=== PATIENT | female | born 1945 | race Two or more races ===

== ENCOUNTER 2018-03-27 18:06 | Emergency (ER) | payer OTHER ==
[~2018-03-27] VITALS: Ht 157.5 cm; Wt 72.6 kg
[~2018-03-27 18:06] MED LIST: ALBUTEROL2.5 MG/3 M IH; GILTUSS COUGH-118 ML PO; IBUPROFEN800 MG PO; SEPTRA DS TABLE1 TAB PO
[2018-03-27] MEDS ORDERED: MUCINEX600 MG (18:16)
[2018-03-27] MEDS ORDERED: SYMBICORT 16010.2 GM (18:16)
[2018-03-28] MEDS ORDERED: SYMBICORT 16010.2 GM IH (01:55)
[2018-03-28] MEDS ORDERED: ZYNCOF 20-400120 ML PO (01:55)
[2018-03-28] MEDS ORDERED: ALBUTEROL2.5 MG/3 M IH (01:55)
[2018-03-28] MEDS ORDERED: ALLEGRA ALLERG180 MG PO (01:55)
== END 2018-03-28 01:51 | disposition home or self-care (01) ==
LOC: ER 18:06
DX: J45.998 Other asthma (principal)

== ENCOUNTER 2018-07-04 15:41 | Emergency (ER) | payer OTHER ==
[~2018-07-04] VITALS: Ht 157.5 cm; Wt 72.6 kg
[~2018-07-04 15:41] MED LIST changes: +ALLEGRA ALLERG180 MG PO; +MUCINEX600 MG; +SYMBICORT 16010.2 GM; +SYMBICORT 16010.2 GM IH; +ZYNCOF 20-400120 ML PO
== END 2018-07-04 17:37 | disposition home or self-care (01) ==
LOC: ER 15:41
DX: S20.211A Contusion of right front wall of thorax, initial encounter (principal); B34.9 Viral infection, unspecified; W06.XXXA Fall from bed, initial encounter; Y93.84 Activity, sleeping; Y92.092 Bedroom in other non-institutional residence as the place of occurrence of the external cause; Y99.8 Other external cause status

== ENCOUNTER 2018-07-09 08:26 | Emergency (ER) | payer OTHER ==
[~2018-07-09] VITALS: Ht 157.5 cm; Wt 72.6 kg
== END 2018-07-09 11:58 | disposition home or self-care (01) ==
LOC: ER 08:26
DX: S20.212A Contusion of left front wall of thorax, initial encounter (principal); S20.211A Contusion of right front wall of thorax, initial encounter; W18.39XA Other fall on same level, initial encounter; Y93.89 Activity, other specified; Y92.098 Other place in other non-institutional residence as the place of occurrence of the external cause; Y99.8 Other external cause status

== ENCOUNTER 2018-07-14 12:29 | Outpatient (CLI) | payer OTHER | END 2018-07-14 12:38 | disposition home or self-care (01) | LOC: TOM 12:29 | DX: J44.9 Chronic obstructive pulmonary disease, unspecified (principal); R07.89 Other chest pain ==

== ENCOUNTER 2019-01-22 13:38 | Outpatient (CLI) | payer OTHER | END 2019-01-22 14:28 | disposition home or self-care (01) | LOC: RAD 13:38 | DX: R05 Cough (principal) ==

== ENCOUNTER 2019-01-26 08:45 | Outpatient (CLI) | payer OTHER | END 2019-01-26 08:47 | disposition home or self-care (01) | LOC: SONOGRAMA 08:45 | DX: K76.0 Fatty (change of) liver, not elsewhere classified (principal); R10.84 Generalized abdominal pain; D25.9 Leiomyoma of uterus, unspecified ==

== ENCOUNTER 2019-02-03 14:17 | Outpatient (CLI) | payer OTHER | END 2019-02-03 14:23 | disposition home or self-care (01) | LOC: NUCLEAR 14:17 | DX: M81.0 Age-related osteoporosis without current pathological fracture (principal) ==

== ENCOUNTER 2019-04-06 11:44 | Emergency (ER) | payer OTHER ==
[~2019-04-06] VITALS: Ht 157.5 cm; Wt 73.0 kg
[2019-04-06] MEDS ORDERED: KETO10TA2 PO (16:09)
[2019-04-06] MEDS ORDERED: MAPAP500 MG (16:42)
== END 2019-04-06 16:31 | disposition home or self-care (01) ==
LOC: ER 11:44
DX: S80.01XA Contusion of right knee, initial encounter (principal); S99.811A Other specified injuries of right ankle, initial encounter; W01.198A Fall on same level from slipping, tripping and stumbling with subsequent striking against other object, initial encounter; Y93.89 Activity, other specified; Y92.018 Other place in single-family (private) house as the place of occurrence of the external cause; Y99.8 Other external cause status

== ENCOUNTER 2019-05-14 13:52 | Outpatient (CLI) | payer OTHER ==
[~2019-05-14 13:52] MED LIST changes: +KETO10TA2 PO; +MAPAP500 MG
== END 2019-05-14 16:02 | disposition home or self-care (01) ==
LOC: EKG 13:52
DX: I10 Essential (primary) hypertension (principal); J44.9 Chronic obstructive pulmonary disease, unspecified

== ENCOUNTER 2019-05-19 09:47 | Outpatient (CLI) | payer OTHER | END 2019-05-19 11:36 | disposition home or self-care (01) | LOC: NUCLEAR 09:47 | DX: I10 Essential (primary) hypertension (principal); J44.9 Chronic obstructive pulmonary disease, unspecified ==

== ENCOUNTER 2019-08-25 07:07 | Emergency (ER) | payer OTHER ==
[~2019-08-25] VITALS: Ht 157.5 cm; Wt 72.1 kg
== END 2019-08-25 11:13 | disposition home or self-care (01) ==
LOC: ER 07:07
DX: J44.1 Chronic obstructive pulmonary disease with (acute) exacerbation (principal)

== ENCOUNTER 2019-08-30 09:02 | Emergency (ER) | payer OTHER ==
[~2019-08-30] VITALS: Ht 157.5 cm; Wt 72.6 kg
[2019-08-30] MEDS ORDERED: TESSALON PERLE100 M1 (09:17)
== END 2019-08-30 12:34 | disposition home or self-care (01) ==
LOC: ER 09:02
DX: J45.998 Other asthma (principal)

== ENCOUNTER 2020-04-27 09:09 | Emergency (ER) | payer OTHER ==
[~2020-04-27] VITALS: Ht 154.9 cm; Wt 72.6 kg
[~2020-04-27 09:09] MED LIST changes: +TESSALON PERLE100 M1
== END 2020-04-27 12:11 | disposition home or self-care (01) ==
LOC: ER 09:09
DX: R07.89 Other chest pain (principal); Z03.818 Encounter for observation for suspected exposure to other biological agents ruled out

== ENCOUNTER 2021-02-28 11:07 | Emergency (ER) | payer OTHER ==
[~2021-02-28] VITALS: Ht 154.9 cm; Wt 72.6 kg
== END 2021-02-28 19:11 | disposition home or self-care (01) ==
LOC: ER 11:07
DX: B34.9 Viral infection, unspecified (principal); Z11.52 Encounter for screening for COVID-19; R50.9 Fever, unspecified; M54.5 Low back pain; R53.81 Other malaise

== ENCOUNTER 2021-05-09 14:34 | Emergency (ER) | payer OTHER ==
[~2021-05-09] VITALS: Ht 154.9 cm; Wt 77.6 kg
[2021-05-09] MEDS ORDERED: LASIX20 MG PO (18:09)
== END 2021-05-09 19:03 | disposition home or self-care (01) ==
LOC: ER 14:34
DX: R60.0 Localized edema (principal); M25.572 Pain in left ankle and joints of left foot; M25.571 Pain in right ankle and joints of right foot

== ENCOUNTER 2021-08-17 10:15 | Emergency (ER) | payer OTHER ==
[~2021-08-17] VITALS: Ht 165.1 cm; Wt 77.1 kg
[~2021-08-17 10:15] MED LIST changes: +LASIX20 MG PO
[2021-08-17] MEDS ORDERED: ABREVA2 GM TOP (10:46)
[2021-08-17] MEDS ORDERED: VALACYCLOVIR1000 MG PO (10:46)
== END 2021-08-17 10:54 ==
LOC: ER 10:15
DX: B00.1 Herpesviral vesicular dermatitis (principal)

== ENCOUNTER 2021-08-21 09:35 | Outpatient (CLI) | payer OTHER ==
[~2021-08-21 09:35] MED LIST changes: +ABREVA2 GM TOP; +VALACYCLOVIR1000 MG PO
== END 2021-08-21 09:36 | disposition home or self-care (01) ==
LOC: NUCLEAR 09:35
PROVIDERS: ATTEND Surgery
DX: I87.2 Venous insufficiency (chronic) (peripheral) (principal); I73.9 Peripheral vascular disease, unspecified

== ENCOUNTER 2021-09-25 10:58 | Emergency (ER) | payer OTHER ==
[~2021-09-25] VITALS: Ht 154.9 cm; Wt 77.1 kg
== END 2021-09-25 13:42 | disposition home or self-care (01) ==
LOC: ER 10:58
DX: J45.901 Unspecified asthma with (acute) exacerbation (principal)

== ENCOUNTER 2021-11-08 10:45 | Outpatient (CLI) | payer OTHER | END 2021-11-08 10:46 | disposition home or self-care (01) | LOC: NUCLEAR 10:45 | PROVIDERS: ATTEND Internal Medicine Cardiovascular Disease | DX: I11.9 Hypertensive heart disease without heart failure (principal) ==

== ENCOUNTER 2022-04-27 22:29 | Emergency (ER) | payer OTHER ==
[~2022-04-27] VITALS: Ht 154.9 cm; Wt 72.6 kg
[2022-04-28] MEDS ORDERED: XOPENEX0.63 MG/3 IH (01:32)
[2022-04-28] MEDS ORDERED: MOLNUPIRAVIR (200 MG PO (01:32)
[2022-04-28] MEDS ORDERED: ACETAMINOPHEN650 M2 PO (01:32)
[2022-04-28] MEDS ORDERED: MUCINEX DM ER1 EACH PO (01:32)
== END 2022-04-28 01:55 | disposition home or self-care (01) ==
LOC: ER 22:29
DX: U07.1 COVID-19 (principal)

== ENCOUNTER 2022-05-06 16:10 | Emergency (ER) | payer OTHER ==
[~2022-05-06] VITALS: Ht 157.5 cm; Wt 90.7 kg
[~2022-05-06 16:10] MED LIST changes: +ACETAMINOPHEN650 M2 PO; +MOLNUPIRAVIR (200 MG PO; +MUCINEX DM ER1 EACH PO; +XOPENEX0.63 MG/3 IH
== END 2022-05-06 19:55 | disposition home or self-care (01) ==
LOC: ER 16:10
DX: U07.1 COVID-19 (principal)

== ENCOUNTER 2022-06-11 18:09 | Inpatient (IN) | payer OTHER ==
[~2022-06-11] VITALS: Ht 154.9 cm; Wt 74.8 kg
[2022-06-11] MEDS ORDERED: TESSALON (18:29)
[2022-06-11] MEDS ORDERED: PROVENTIL HFA6.7 GM (18:29)
[2022-06-14] MEDS ORDERED: MEDROLPACK PO (16:44)
[2022-06-14] MEDS ORDERED: IPRAT-ALBUT 0.5-3 ML IH (16:44)
[2022-06-14] MEDS ORDERED: TUSSIN DM LIQU118 ML PO (16:44)
[2022-06-14] MEDS ORDERED: INTESTINEX680 M1 PO (16:44)
[2022-06-14] MEDS ORDERED: LEVOFLOXACIN500 MG PO (16:44)
== END 2022-06-14 20:21 | disposition home or self-care (01) | DRG 191 ==
LOC: ER 18:09 → MEDI 22:11 → SEC-K 22:11 → MEDI 06-12 02:31
PROVIDERS: ADMIT Internal Medicine; ATTEND Internal Medicine
PROC: BB24ZZZ Computerized Tomography (CT Scan) of Bilateral Lungs (ICD-10-PCS; 2022-06-11)
PROC: 3E0F7GC Introduction of Other Therapeutic Substance into Respiratory Tract, Via Natural or Artificial Opening (ICD-10-PCS; principal; 2022-06-12)
DX: J44.1 Chronic obstructive pulmonary disease with (acute) exacerbation (principal); N17.9 Acute kidney failure, unspecified; J84.112 Idiopathic pulmonary fibrosis; Z77.22 Contact with and (suspected) exposure to environmental tobacco smoke (acute) (chronic); J40 Bronchitis, not specified as acute or chronic; U09.9 Post COVID-19 condition, unspecified

== ENCOUNTER 2022-07-04 12:38 | Outpatient (CLI) | payer OTHER ==
[~2022-07-04 12:38] MED LIST changes: +INTESTINEX680 M1 PO; +IPRAT-ALBUT 0.5-3 ML IH; +LEVOFLOXACIN500 MG PO; +MEDROLPACK PO; +PROVENTIL HFA6.7 GM; +TESSALON; +TUSSIN DM LIQU118 ML PO
== END 2022-07-04 12:43 | disposition home or self-care (01) ==
LOC: MRI 12:38
PROVIDERS: ATTEND Psychiatry & Neurology Clinical Neurophysiology
DX: I63.30 Cerebral infarction due to thrombosis of unspecified cerebral artery (principal)
CPT/HCPCS: 70551

== ENCOUNTER 2022-09-25 13:40 | Outpatient (CLI) | payer OTHER | END 2022-09-25 13:54 | disposition home or self-care (01) | LOC: SONOGRAMA 13:40 | PROVIDERS: ATTEND Internal Medicine Cardiovascular Disease | DX: I10 Essential (primary) hypertension (principal); R10.9 Unspecified abdominal pain ==

== ENCOUNTER → 2023-08-13 | Emergency (ER) | payer OTHER ==
[~2023-08-13] VITALS: Ht 157.5 cm; Wt 72.6 kg
== END | disposition left against medical advice (07) ==
LOC: ER 20:39
DX: Z53.21 Procedure and treatment not carried out due to patient leaving prior to being seen by health care provider (principal)

== ENCOUNTER → 2024-04-16 08:17 | Outpatient (CLI) | payer OTHER | END | disposition home or self-care (01) | LOC: TOM 08:17 | PROVIDERS: ATTEND Specialist | DX: K11.8 Other diseases of salivary glands (principal) | CPT/HCPCS: 70491; Q9965 ==

== ENCOUNTER 2024-10-12 16:43 | Emergency (ER) | payer OTHER ==
[~2024-10-12] VITALS: Ht 154.9 cm; Wt 72.6 kg
[2024-10-12 18:47] LABS: HEMATOCRIT 42.9 % (36.0-45.00); MEAN CELL VOLUME 87.7 fL (80.00-100.00); MEAN CORPUSCULAR HEMOGLOBIN 28.6 pg (27.00-32.0); MEAN CORPUSCULAR HGB CONC 32.6 g/dl (32.0-36.0); PLATELET COUNT 222 K/uL (150-450); RED BLOOD COUNT 4.89 M/uL (4.00-6.00); RED CELL DISTRIBUTION WIDTH 14.5 % (11.5-14.5)
[2024-10-12 19:26] LABS: ALBUMIN 3.6 gm/dL (3.4-5.0); BILIRUBIN TOTAL 0.35 mg/dL (0.3-1.2); CALCIUM 9.2 mg/dL (8.5-10.1); CREATININE SERUM 0.87 mg/dL (0.55-1.02); GFR 62.65; GLOBULINA 2.8 G/DL (2.4-3.5); POTASSIUM 3.93 mEq/L (3.5-5.1); TOTAL PROTEIN 6.4 gm/dL (6.4-8.2)
== END 2024-10-12 20:32 | disposition home or self-care (01) ==
LOC: ER 16:43
PROVIDERS: General Practice
DX: R55 Syncope and collapse (principal); I10 Essential (primary) hypertension

== ENCOUNTER 2025-06-12 16:32 | Emergency (ER) | payer OTHER ==
[~2025-06-12] VITALS: Ht 157.5 cm; Wt 72.6 kg
[2025-06-12] MEDS ORDERED: ONDANSETRON HCL 2 MG/ML VIAL IV ONE (17:00)
[2025-06-12] MEDS ORDERED: LACTOBACILLUS ACIDOPHILUS 1 CAP CAP PO ONE ×2 (17:00→18:27)
[2025-06-12] MEDS ORDERED: FAMOTIDINE/PF 20 MG/2 ML VIAL IV ONE (17:00)
[2025-06-12] MEDS ORDERED: 0.9 % SODIUM CHLORIDE 1,000 ML IV ONE (17:00)
[2025-06-12] MEDS ORDERED: ONDANSETRON HCL 2 MG/ML VIAL ONE (18:26)
[2025-06-12] MEDS ORDERED: FAMOTIDINE/PF 20 MG/2 ML VIAL ONE (18:27)
[2025-06-12 19:02] LABS: BASO % 0.3 % (0.1-1.2); EOS # 0.03 (0.04-0.54); EOS % 0.4 % (0.7-7.0); LYMPH # 1.81 (1.18-3.74); LYMPH % 23.8 % (19.3-53.1); MEAN PLATELET VOLUME 10.70 fl (9.4-12.4); MONO # 0.52 (0.24-0.82); MONO % 6.8 % (4.7-12.5); NEUT # 5.21 (1.56-6.13); NEUT % 68.4 % (34.0-71.1); RED CELL DISTRIBUTION WIDTH 13.4 % (11.6-14.4)
[2025-06-12 19:35] LABS: INR < 0.93
[2025-06-12 19:39] LABS: ALT/SGPT 22.0 U/L (12-78); AST/SGOT 15.0 U/L (15-37); BILIRUBIN TOTAL 0.74 mg/dL (0.3-1.2); BUN CREA RATIO 27.0 (7.0-25.0); CREATININE SERUM 0.82 mg/dL (0.55-1.02); GFR 66.91; GLOBULINA 3.2 G/DL (2.4-3.5); GLUCOSE FASTING 109.0 mg/dL (65-100); OSMOLALITY SERUM 287.0 MOSM/KG (275-295)
[2025-06-12 20:54] LABS: URINE APPEARANCE Clear; URINE BILIRRUBIN Negative (NEGATIVE); URINE BLOOD Negative; URINE COLOR Yellow; URINE GLUCOSE Negative (NEGATIVE); URINE KETONE Trace (NEGATIVE); URINE LEUKOCYTE Trace; URINE NITRATE Negative; URINE PROTEIN Negative (NEGATIVE); URINE UROBILINOGEN 0.2 E.U./dl
[2025-06-12 20:59] LABS: URINE BACTERIA 83.9 uL (0.0-1933); URINE EPITHELIAL CELLS 13.5 uL (0.0-38.8); URINE RBC 2.9 uL (0.0-20.8); URINE WBC 15.6 uL (0.0-23.2)
[2025-06-12 21:04] LABS: URINE CAST 0.29 uL (0.0-1.40)
[2025-06-12] MEDS ORDERED: DICY20TA PO (21:55)
[2025-06-12] MEDS ORDERED: INTESTINEX680 M1 PO (21:55)
== END 2025-06-12 22:54 | disposition home or self-care (01) ==
LOC: ER 16:32
DX: K52.89 Other specified noninfective gastroenteritis and colitis (principal)
CPT/HCPCS: 36415; 74176; 96365; 96366; 99284; J2405; J3490; J7030